=== PATIENT | female | born 1960 | race Caucasian/White ===

== ENCOUNTER 2018-05-21 09:00 | Day surgery (SDC) | payer BC ==
[~2018-05-21 09:00] MED LIST: LIDOCAINE HCL 1% MPF 30 SOL ONE; PROPOFOL 500 MG/50 ML EMU IV ONE
[2018-05-21 11:42] VITALS: BP 11/72; PULSE 85; RESP 18; TEMP 97.4; O2SAT 99
== END 2018-05-21 12:05 | disposition home or self-care (01) ==
LOC: SURG 09:00
PROVIDERS: ATTEND Surgery
DX: Z12.11 Encounter for screening for malignant neoplasm of colon (principal); Z80.8 Family history of malignant neoplasm of other organs or systems; Z83.71 Family history of colonic polyps; K57.32 Diverticulitis of large intestine without perforation or abscess without bleeding
CPT/HCPCS: J2001; J2704